=== PATIENT | female | born 2000 | race Caucasian/White ===

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

== ENCOUNTER 2023-06-29 11:50 | Outpatient (REF) | payer OTHER, MEDICAID, SELFPAY ==
--- NOTE | 2023-06-29 11:30 | PAPFT_PTH ---
PATIENT: RICARDO MONCADA LOC: [facility] U#:[id number] AGE/SX: 23/F ROOM: RE06/29/[address]: Tabby Feldman CNM : 2000 BED: DIS: 06/29/2023 SPEC #: [id number] RECD: 06/29/23 13:13 STATUS: ALBINA RETamika #: [id number] LORENE: 06/29/23 11:[address]: Tabby Feldman DEPT: [facility] Cytology RECD BY: Rosita Vegas ENTERED: 06/29/23 13:14 SP TYPE: PAPFT OTHR DR: Gildardo Recinos, JUNITO Tissues: 1 - CX/ENDOCX FOR PAP SMEARS Procedures: PAP THIN PREP/[facility] Screening Comments: [id number] (CHLAMYDIA/GC)
[2023-06-30 17:24] LABS: Chlamydia Result Negative (Negative); GC Result Negative (Negative)
== END 2023-06-29 11:51 | disposition home or self-care (01) ==
LOC: LBN 11:50
PROVIDERS: PCP Nurse Practitioner Family; Visit Provider Advanced Practice Midwife
DX: Z12.4 Encounter for screening for malignant neoplasm of cervix (principal); Z11.3 Encounter for screening for infections with a predominantly sexual mode of transmission
CPT/HCPCS: 87491; 87591; 88142